=== PATIENT | male | born 1975 | race African-American/Black ===

== ENCOUNTER 2019-09-12 13:47 | Outpatient (CLI) | payer BC ==
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
== END 2019-09-12 13:48 | disposition home or self-care (01) ==
LOC: BICRAD 13:47
PROVIDERS: ATTEND Physician Assistant
DX: S13.4XXA Sprain of ligaments of cervical spine, initial encounter (principal); M54.9 Dorsalgia, unspecified
CPT/HCPCS: 72040; 72072